=== PATIENT | male | born 1995 | race Two or more races ===

== ENCOUNTER 2021-06-15 02:39 | Emergency (ER) | payer OTHER ==
[~2021-06-15] VITALS: Ht 177.8 cm; Wt 133.8 kg
[2021-06-15 04:45] VITALS: BP 135/90
[2021-06-15] MEDS ORDERED: KETOROLAC TROMETH 60MG/2ML VIAL IM ONE (04:45)
[2021-06-15] MEDS ORDERED: methylPREDNISolone SOD SUCC 125 MG/2 ML VL IM ONE (04:45)
[2021-06-15] MEDS ORDERED: CIPR1SUS4 TP (04:46)
== END 2021-06-15 05:17 | disposition home or self-care (01) ==
LOC: ER 02:39
DX: H60.92 Unspecified otitis externa, left ear (principal); E66.9 Obesity, unspecified; Z68.41 Body mass index [BMI] 40.0-44.9, adult
CPT/HCPCS: 96372; 99284; J1885; J2930